=== PATIENT | male | born 2000 | race Caucasian/White ===

== ENCOUNTER 2022-05-15 10:20 | Emergency (ER) | payer SELFPAY ==
[2022-05-15] MEDS ORDERED: Tetracaine 0.5% PF 4 ML BOT ONE (11:09)
[2022-05-15] MEDS ORDERED: Fluorescein Opthalmic Strip ONE ×2 (11:09→11:18)
== END 2022-05-15 11:30 | disposition home or self-care (01) ==
LOC: CSHERS 10:20 → EDSEX 10:20 → CSHERS 11:30
DX: H18.20 Unspecified corneal edema (principal)
CPT/HCPCS: 99283